=== PATIENT | female | born 1975 | race Caucasian/White ===

== ENCOUNTER 2021-03-28 19:48 | Emergency (ER) | payer OTHER ==
[~2021-03-28] VITALS: Ht 154.9 cm; Wt 73.5 kg
[2021-03-28 19:58] VITALS: BP 137/61
--- NOTE | 2021-03-28 20:04 | NUR ---
to lobby to a/w evaluation
[2021-03-28 20:15] VITALS: BP 137/61
[2021-03-28] MEDS ORDERED: PROCHLORPERAZINE 5 MG TAB PO ONE (22:55)
[2021-03-28] MEDS ORDERED: KETOROLAC 30 MG/ML VIAL IM ONE (22:55)
[2021-03-28] MEDS ORDERED: PROC-62 PO (23:37)
[2021-03-28] MEDS ORDERED: DIPH25TA53 PO (23:37)
--- NOTE | 2021-03-28 23:48 | NUR ---
PT CLEARED FOR DISCHARGE BY DR. WRIGHT. PT LEFT FACILITY WITH DISCHARGE INSTRUCTIONS.
== END 2021-03-28 23:48 | disposition home or self-care (01) ==
LOC: MED 19:48
DX: R51.9 Headache, unspecified (principal); R11.0 Nausea
CPT/HCPCS: 81025; 96372; 99283; J1885; Q0163; Q0164